=== PATIENT | female | born 2000 | race African-American/Black ===

== ENCOUNTER 2022-10-07 09:58 | Emergency (ER) | payer BC ==
[2022-10-07 10:08] VITALS: BP 155/88; PULSE 80; RESP 18; TEMP 98; BMI 27.4
[2022-10-07] MEDS ORDERED: ACETAMINOPHEN 500 MG TABLET (FP) PO ONE (10:33)
[2022-10-07] MEDS ORDERED: oxyCODONE HCL 5 MG TABLET PO ONE (10:40)
[2022-10-07] MEDS ORDERED: ONDANSETRON *ODT* 4 MG TABLET ONE (11:57)
[2022-10-07] MEDS ORDERED: ONDANSETRON *ODT* 4 MG TABLET SL ONE (11:57)
== END 2022-10-07 12:21 | disposition home or self-care (01) ==
LOC: JER 09:58 → JERFT 09:58
DX: S82.832A Other fracture of upper and lower end of left fibula, initial encounter for closed fracture (principal); W10.9XXA Fall (on) (from) unspecified stairs and steps, initial encounter
CPT/HCPCS: 73590-TC-LT-FY; 73610-TC-LT-FY; 73630-TC-LT; 99284-25; Q0162

== ENCOUNTER 2023-09-21 06:15 | Inpatient (IN) | payer BC ==
[2023-09-21] MEDS: ELECTROLYTE-148 SOLN 1,000 ML IV SCH (09:15)
[2023-09-21] MEDS ORDERED: AMPICILLIN SODIUM 2 GM VIAL ONE (09:19)
[2023-09-21] MEDS: AMPICILLIN - 2 GM in SODIUM CHLORIDE 100 ML IVPB ONE (09:30)
[2023-09-21] MEDS ORDERED: PROMETHAZINE HCL 25 MG/1 ML VIAL ONE (10:05)
[2023-09-21] MEDS ORDERED: BUTORPHANOL TARTRATE 2 MG/ML VIAL ONE (10:05)
[2023-09-21] MEDS: BUTORPHANOL TARTRATE 2 MG/ML VIAL IVPB ONE (10:20)
[2023-09-21] MEDS: PROMETHAZINE HCL 25 MG/1 ML VIAL IVPB ONE (10:20)
[2023-09-21 10:45] LABS: BASO % 0.2 % (0-2.0); EOS % 0.5 % (0-4.5); HEMATOCRIT 32.5 % (32.4-45.2); HEMOGLOBIN 9.9 GM/dL (10.7-15.3); LYMPH % 9.7 % (8-40); MCHC 30.5 g/dl (32.0-36.0); MEAN CELL VOLUME 61.2 fl (80-96); MEAN PLT VOLUME 8.9 fl (7.5-11.1); MONO % 7.1 % (3.8-10.2); NEUT % 82.5 % (42.8-82.8); PLATELET COUNT 210 10^3/uL (134-434); RBC 5.31 M/mm3 (3.60-5.2); RDW 14.6 % (11.6-15.6); WHITE BLOOD COUNT 16.8 K/mm3 (4.0-10.0)
[2023-09-21 10:46] LABS: MCH 18.7 pg (25.7-33.7)
[2023-09-21 10:49] LABS: INR 0.98 (0.83-1.09); PROTHROMBIN TIME (PATIENT) 11.4 SEC (9.7-13.0)
[2023-09-21 10:52] LABS: ACTIVATED PTT 24.8 SECONDS (25.2-36.5)
[2023-09-21 10:59] VITALS: BMI 26.7
[2023-09-21 11:10] LABS: POTASSIUM 3.7 mmol/L (3.5-5.1)
[2023-09-21 11:11] LABS: CALCIUM 8.6 mg/dL (8.5-10.1)
[2023-09-21 11:12] LABS: BLOOD UREA NITROGEN 4.8 mg/dL (7-18)
[2023-09-21 11:16] LABS: CREATININE 0.5 mg/dL (0.55-1.3)
[2023-09-21 11:59] LABS: ANISOCYTOSIS 2+; MACROCYTOSIS 0
[2023-09-21 12:07] LABS: HIV INTERPRETATION NEGATIVE (NEGATIVE)
[2023-09-21 12:46] LABS: OPIATES, URI NEGATIVE (NEGATIVE); URINE BARBITURATES NEGATIVE (NEGATIVE)
[2023-09-21 12:47] LABS: METHADONE, UR NEGATIVE (NEGATIVE); PHENCYCLIDINE,URINE NEGATIVE (NEGATIVE); URINE AMPHETAMINES NEGATIVE (NEGATIVE); URINE BENZODIAZEPINES NEGATIVE (NEGATIVE)
[2023-09-21] MEDS ORDERED: AMPICILLIN SODIUM 1 GM VIAL ONE (12:51)
[2023-09-21 12:57] LABS: COCAINE, UR NEGATIVE (NEGATIVE)
[2023-09-21] MEDS: AMPICILLIN - 1 GM in SODIUM CHLORIDE 100 ML IVPB SCH (13:20)
[2023-09-21] MEDS: metroNIDAZOLE 500 MG TABLET PO ONE (13:30)
[2023-09-21] MEDS ORDERED: FENTANYL/BUPIVACAINE/NS/PF - PCEA - 50 ML DISP.SYRIN EP ONE (15:28)
[2023-09-21] MEDS ORDERED: BUPIVACAINE HCL/PF 0.25% (2.5MG/ML) 10 ML VIAL ONE (15:33)
[2023-09-21] MEDS ORDERED: FENTANYL CITRATE/PF 50 MCG/ML VIAL ONE ×2 (15:33→18:20)
[2023-09-21] MEDS: FENTANYL/BUPIVACAINE/NS/PF - PCEA - 50 ML DISP.SYRIN EP SCH (15:45)
[2023-09-21] MEDS: OXYTOCIN 30 UNITS in 0.9% NS 30 UNIT/500 ML INFUS.BAG IVPB SCH (17:10)
[2023-09-21] MEDS ORDERED: TAPENTADOL HYDROCHLORIDE 50 MG TABLET PO PRN (17:48)
[2023-09-21] MEDS: AZITHROMYCIN IVPB 500 MG/250 ML BAG IVPB STA (18:18)
[2023-09-21] MEDS ORDERED: AZITHROMYCIN IVPB 500 MG/250 ML BAG IVPB ONE (18:18)
[2023-09-21] MEDS ORDERED: LIDO 2%/EPI 1:200000 PRESRVFRE (20 ML SDVIAL) ONE (18:20)
[2023-09-21] MEDS ORDERED: PHENYLEPHRINE HCL 10 MG/1 ML SINGLE DOSE VIAL ONE (18:28)
[2023-09-21] MEDS ORDERED: KETOROLAC TROMETHAMINE 30 MG/1 ML VIAL ONE (18:30)
[2023-09-21] MEDS ORDERED: ONDANSETRON 4 MG/2 ML VIAL ONE (18:30)
[2023-09-21] MEDS ORDERED: OXYTOCIN 30 UNITS in 0.9% NS 30 UNIT/500 ML INFUS.BAG IVPB ONE (18:31)
[2023-09-21] MEDS: CEFAZOLIN SODIUM 2 GM in DEXTROSE 5%-WATER 100 ML IVPB ONE (18:47)
[2023-09-21] MEDS ORDERED: ceFAZolin SODIUM 1 GM VIAL ONE (18:48)
[2023-09-21 19:39] LABS: CORD BASE EXCESS -2.8 mmol/L (0-2); CORD HCO3 23.5 mmHg (20-29); CORD PCO2 46.4 mmHg (30-78); CORD pH 7.323 (7.14-7.44)
[2023-09-21 19:42] LABS: CORD BASE EXCESS 0.5 mmol/L (0-2); CORD HCO3 28.8 mmHg (20-29); CORD PCO2 62.1 mmHg (30-78); CORD pH 7.284 (7.14-7.44)
[2023-09-21] MEDS ORDERED: OXYTOCIN 20 UNITS in 0.9% NS 20 UNIT/1,000 ML INFUS.BAG IV ONE (20:46)
[2023-09-21] MEDS: OXYTOCIN 20 UNITS in 0.9% NS 20 UNIT/1,000 ML INFUS.BAG IV SCH (20:50)
[2023-09-22] MEDS ORDERED: oxyCODONE HCL 5 MG TABLET PO PRN (05:39)
[2023-09-22] MEDS: IBUPROFEN 800 MG/8 ML IJ IVPB PRN (05:52)
[2023-09-22 07:52] LABS: BASO % 0.2 % (0-2.0); EOS % 0.7 % (0-4.5); HEMATOCRIT 26.7 % (32.4-45.2); HEMOGLOBIN 8.4 GM/dL (10.7-15.3); LYMPH % 8.5 % (8-40); MCHC 31.5 g/dl (32.0-36.0); MEAN CELL VOLUME 61.1 fl (80-96); MEAN PLT VOLUME 8.5 fl (7.5-11.1); MONO % 10.7 % (3.8-10.2); NEUT % 79.9 % (42.8-82.8); PLATELET COUNT 183 10^3/uL (134-434); RBC 4.38 M/mm3 (3.60-5.2); RDW 14.6 % (11.6-15.6); WHITE BLOOD COUNT 17.2 K/mm3 (4.0-10.0)
[2023-09-22 08:01] LABS: MCH 19.2 pg (25.7-33.7)
[2023-09-22] MEDS: SIMETHICONE 80 MG TAB.CHEW (FP) PO PRN (15:11)
[2023-09-22] MEDS: IBUPROFEN 600 MG TABLET (FP) PO PRN (15:11)
[2023-09-22] MEDS: KETOROLAC TROMETHAMINE 10 MG TABLET PO PRN (16:18)
[2023-09-22] MEDS ORDERED: BISACODYL 10 MG SUPP.RECT RC PRN (17:39)
[2023-09-24 06:51] LABS: BASO % 0.3 % (0-2.0); EOS % 3.3 % (0-4.5); HEMATOCRIT 24.4 % (32.4-45.2); HEMOGLOBIN 7.8 GM/dL (10.7-15.3); LYMPH % 18.4 % (8-40); MCHC 32.1 g/dl (32.0-36.0); MEAN PLT VOLUME 8.5 fl (7.5-11.1); PLATELET COUNT 191 10^3/uL (134-434); RBC 3.99 M/mm3 (3.60-5.2); RDW 14.3 % (11.6-15.6); WHITE BLOOD COUNT 12.3 K/mm3 (4.0-10.0)
[2023-09-24 07:06] LABS: MCH 19.6 pg (25.7-33.7)
[2023-09-24 08:51] VITALS: BP 116/68; PULSE 85; RESP 18; TEMP 98.3
[2023-09-24] MEDS: oxyCODONE HCL 5 MG TABLET PO ONE (13:26)
== END 2023-09-24 15:05 | disposition home or self-care (01) | DRG 788 ==
LOC: JDEL 06:15 → JLDR 09:15 → J3W 22:23
PROVIDERS: ADMIT Student in an Organized Health Care Education/Training Program; ATTEND Student in an Organized Health Care Education/Training Program
PROC: 10D00Z1 Extraction of Products of Conception, Low, Open Approach (ICD-10-PCS; principal; 2023-09-21)
DX: O62.0 Primary inadequate contractions (principal); O36.8330 Maternal care for abnormalities of the fetal heart rate or rhythm, third trimester, not applicable or unspecified; Z3A.39 39 weeks gestation of pregnancy; Z37.0 Single live birth
CPT/HCPCS: 36415; 36600; 80048; 80307; 82803; 85025; 85610; 85730; 86780; 86850; 86900; 86901; 87389; 87661; 88307-TC